=== PATIENT | female | born 1990 | race Caucasian/White ===

== ENCOUNTER 2017-06-27 09:01 | Emergency (ER) | payer MEDICAID ==
[~2017-06-27] VITALS: Ht 162.6 cm; Wt 64.9 kg
[2017-06-27 09:07] VITALS: Ht 162.6 cm; Wt 64.9 kg
[2017-06-27 10:00] VITALS: BP 125/77
== END 2017-06-27 10:00 | disposition home or self-care (01) ==
LOC: ED 09:01
DX: J02.9 Acute pharyngitis, unspecified (principal)

== ENCOUNTER 2017-11-14 11:35 | Emergency (ER) | payer MEDICAID ==
[~2017-11-14] VITALS: Ht 162.6 cm; Wt 64.0 kg
[2017-11-14 11:50] VITALS: Ht 162.6 cm; Wt 64.0 kg
[2017-11-14 13:03] LABS: microscopic required? YES; urine erythrocyte 1+ (NEGATIVE)
[2017-11-14 13:31] VITALS: BP 126/69
== END 2017-11-14 13:31 | disposition home or self-care (01) ==
LOC: ED 11:35
PROVIDERS: Emergency Medicine
DX: N39.0 Urinary tract infection, site not specified (principal); G89.29 Other chronic pain